=== PATIENT | female | born 1985 | race Two or more races ===

== ENCOUNTER 2016-09-08 14:27 | Emergency (ER) | payer OTHER ==
[~2016-09-08] VITALS: Ht 170.2 cm; Wt 108.9 kg
--- NOTE | 2016-09-08 14:50 | NUR ---
PT BIB SELF C/O EPIGASTRIC PAIN SINCE YESTERDAY, WORSENS WITH MOVEMENT OR EATING, WITH ASSOCIATED NAUSEA. NO VOMITINIG. ALSO C/O DIARRHEA X2 WEEKS. RESP EVEN UNLABORED. SKIN WARM NONDIAPHORETIC. AMBULATORY WITH STEADY GAIT. NAD NOTED. VSS. IN ER BED 11.
[2016-09-08] MEDS ORDERED: IV SET PRIMARY 1 EA INFUS.SET MC ONE (14:58)
[2016-09-08] MEDS ORDERED: IV NS 0.9% 0 ML ONE (14:58)
[2016-09-08] MEDS ORDERED: PANTOPRAZOLE 40 MG VIAL ONE (14:58)
[2016-09-08] MEDS ORDERED: PANTOPRAZOLE 40 MG VIAL IV ONE (15:00)
[2016-09-08] MEDS ORDERED: IV NS 0.9% 1,000 ML BAG IV ONE (15:00)
[2016-09-08 15:16] LABS: BASOPHILS # (AUTO) 0.1 /CMM (0.0-0.2); EOSINOPHILS # (AUTO) 0.1 /CMM (0.0-0.7); EOSINOPHILS % (AUTO) 1.4 % (0.0-6.0); HEMATOCRIT 42 % (33-45); HEMOGLOBIN 13.8 g/dL (11.5-14.8); LYMPHOCYTES # (AUTO) 1.2 /CMM (0.8-4.8); LYMPHOCYTES % (AUTO) 14.6 % (20.0-44.0); MEAN CORPUSCULAR HEMOGLOBIN 28 PG (26.0-33.0); MEAN CORPUSCULAR HGB CONC 33 g/dl (31.0-36.0); MEAN CORPUSCULAR VOLUME 84 fL (82-100); MONOCYTES # (AUTO) 0.4 /CMM (0.1-1.30); MONOCYTES % (AUTO) 5.1 % (2.0-12.0); NEUTROPHILS # (AUTO) 6.3 /CMM (1.8-8.9); NEUTROPHILS % (AUTO) 77.9 % (43.0-81.0); PLATELET COUNT (AUTO) 416 /CMM (150-450); RDW COEFFICIENT OF VARIATION 11.8 (11.5-15.0); RED BLOOD CELL COUNT(AUTO) 4.96 MIL/uL (4.0-5.2); WHITE BLOOD COUNT (AUTO) 8.1 K/uL (4.3-11.0)
[2016-09-08 15:25] LABS: CALCIUM, SERUM 8.3 mg/dL (8.5-10.1); CREATININE 0.7 mg/dL (0.6-1.3); POTASSIUM 3.8 mmol/L (3.5-5.1)
[2016-09-08 15:31] LABS: ALBUMIN 3.6 g/dL (3.4-5.0); BILIRUBIN,DIRECT 0.3 mg/dL (0.0-0.2); BILIRUBIN,TOTAL 1.5 mg/dL (0.2-1.0); TOTAL PROTEIN, SERUM 7.4 g/dL (6.4-8.2)
--- NOTE | 2016-09-08 15:32 | NUR ---
3 RNS UNABLE TO OBTAIN IV ACCESS. MD NOTIFIED. PER MD, CANCEL IV INSERTION. AWAITING NEW MED ORDERS.
--- NOTE | 2016-09-08 15:43 | NUR ---
WAITING ON HCG BEFORE CT SCAN.
[2016-09-08 15:46] LABS: APPEARANCE,URINE Clear (CLEAR); BILIRUBIN,URINE SMALL (NEGATIVE); BLOOD, URINE Negative Ery/uL (NEGATIVE); KETONES,URINE Negative (NEGATIVE); LEUKOCYTE ESTERASE ,URINE Negative (NEGATIVE); NITRITE, URINE Negative (NEGATIVE); PH,URINE 5.5 (5.0-8.0); PREGNANCY TEST URINE QUAL NEGATIVE (NEGATIVE); PROTEIN,URINE 30 mg/dl (NEGATIVE); UGLUCOSE Negative (NEGATIVE)
[2016-09-08 15:47] LABS: COLOR,URINE Dark Yellow (YELLOW)
[2016-09-08] MEDS ORDERED: LIDOCAINE VISCOUS 2% UD 15 ML UDC ONE (15:47)
[2016-09-08] MEDS ORDERED: MAG HYDROX/AL HYDROX/SIMETH 30 ML UDC ONE (15:47)
[2016-09-08 16:00] LABS: BACTERIA,URINE Moderate /HPF (None Seen); RBC,URINE 0-2 /HPF (0-2); SQUAMOUS EPITHELIAL CELL,UR Moderate /HPF (None Seen)
[2016-09-08] MEDS ORDERED: LIDOCAINE VISCOUS 2% UD 15 ML UDC MM ONE (16:00)
[2016-09-08] MEDS ORDERED: LIDOCAINE 2% JEL UROJET 10 ML MM ONE (16:00)
[2016-09-08] MEDS ORDERED: MAG HYDROX/AL HYDROX/SIMETH 30 ML UDC PO ONE (16:00)
[2016-09-08] MEDS ORDERED: PANTOPRAZOLE 40 MG TABLET.DR PO ONE ×2 (16:30→16:32)
[2016-09-08] MEDS ORDERED: HYDROCODONE/APAP 10/325MG 1 EA TABLET PO ONE (16:30)
[2016-09-08] MEDS ORDERED: HYDROCODONE/APAP 10/325MG 1 EA TABLET ONE (16:32)
--- NOTE | 2016-09-08 16:39 | NUR ---
Patient discharged to home in stable condition. Written and verbal after care instructions given. Patient verbalizes understanding of instruction. AMBULATORY WITH STEADY GAIT.
[2016-09-08 16:42] VITALS: BP 135/82
== END 2016-09-08 16:43 | disposition home or self-care (01) ==
LOC: ER 14:29
DX: K29.70 Gastritis, unspecified, without bleeding (principal); E66.01 Morbid (severe) obesity due to excess calories; Z90.49 Acquired absence of other specified parts of digestive tract
CPT/HCPCS: 36415; 71010-TC; 80048-TC; 80076-TC; 81000-TC; 83690-TC; 84703-TC; 85025-TC; 87086-TC; A4606; C9113; J7030; Z7610

== ENCOUNTER 2019-03-16 16:31 | Emergency (ER) | payer MEDICAID, OTHER ==
[~2019-03-16] VITALS: Ht 170.2 cm; Wt 136.1 kg
--- NOTE | 2019-03-16 16:35 | NUR ---
CAME IN FOR SPOTTING/CRAMPING X 1 WEEK, 13w , ALSO C/O ABDOMINAL CRAMPS PS 5/, TO ER BED 17, HOOKED TO MONITOR,, PROVIDED W WARM BLANKET, AWAITING MD JACSKON, KEPT SAFE AND COMFORTABLE
--- NOTE | 2019-03-16 16:48 | NUR ---
LEA GARSIA AT BEDSIDE
[2019-03-16 17:20] LABS: BASOPHILS % (AUTO) 0.9 % (0.0-2.0); EOSINOPHILS % (AUTO) 1.3 % (0.0-6.0); HEMATOCRIT 39 % (33-45); HEMOGLOBIN 12.7 g/dL (11.5-14.8); LYMPHOCYTES # (AUTO) 1.7 /CMM (0.8-4.8); LYMPHOCYTES % (AUTO) 29.5 % (20.0-44.0); MEAN CORPUSCULAR HGB CONC 33 g/dl (31.0-36.0); MEAN CORPUSCULAR VOLUME 81 fL (82-100); MONOCYTES # (AUTO) 0.3 /CMM (0.1-1.30); MONOCYTES % (AUTO) 5.9 % (2.0-12.0); NEUTROPHILS # (AUTO) 3.5 /CMM (1.8-8.9); NEUTROPHILS % (AUTO) 62.4 % (43.0-81.0); PLATELET COUNT (AUTO) 362 /CMM (150-450); RED BLOOD CELL COUNT(AUTO) 4.75 MIL/uL (4.0-5.2); WHITE BLOOD COUNT (AUTO) 5.7 K/uL (4.3-11.0)
[2019-03-16 17:27] LABS: CREATININE 0.6 mg/dL (0.6-1.3); POTASSIUM 3.8 mmol/L (3.5-5.1)
[2019-03-16 18:35] LABS: APPEARANCE,URINE Slightly Cloudy (CLEAR); BILIRUBIN,URINE Negative (NEGATIVE); BLOOD, URINE Trace-intact Ery/uL (NEGATIVE); COLOR,URINE Yellow (YELLOW); KETONES,URINE Negative (NEGATIVE); LEUKOCYTE ESTERASE ,URINE Trace (NEGATIVE); NITRITE, URINE Positive (NEGATIVE); PH,URINE 5.5 (5.0-8.0); PROTEIN,URINE Negative (NEGATIVE); UGLUCOSE Negative (NEGATIVE); UROBILINOGEN,URINE 0.2 EU/dL (0.2)
[2019-03-16 18:52] LABS: RBC,URINE 0-2 /HPF (0-2); WBC,URINE 21-50 /HPF (0-3)
[2019-03-16 18:53] LABS: BACTERIA,URINE 4+ /HPF (None Seen); SQUAMOUS EPITHELIAL CELL,UR Few /HPF (None Seen)
--- NOTE | 2019-03-16 19:28 | NUR ---
Patient discharged to home in stable condition. Written and verbal after care instructions given. Patient verbalizes understanding of instruction.
[2019-03-16 19:29] VITALS: BP 122/69
== END 2019-03-16 19:29 | disposition home or self-care (01) ==
LOC: ER 16:37
DX: O20.0 Threatened abortion (principal); N39.0 Urinary tract infection, site not specified; Z90.49 Acquired absence of other specified parts of digestive tract; Z98.890 Other specified postprocedural states; Z3A.14 14 weeks gestation of pregnancy
CPT/HCPCS: 36415; 76856-TC; 80048-TC; 81000-TC; 84702-TC; 85025-TC; 87086-TC; 87186-TC

== ENCOUNTER 2020-06-05 11:26 | Emergency (ER) | payer MEDICAID, OTHER ==
[~2020-06-05] VITALS: Ht 172.7 cm; Wt 159.2 kg
--- NOTE | 2020-06-05 11:40 | NUR ---
THE PATIENT BIBS FOR C/O MILD STABBING LIKE CHEST PAIN, L SIDE FACIAL NUMBNESS SINCE 8AM. THE PATIENT RATES PAIN 5/10. DENIES SOB. RESPIRATION REGULAR AND UNLABORED. PATIENT IS IN ROOM AIR. PATIENT IS PLACED ON A MONITOR. WARM BLANKET PROVIDED FOR COMFORT. WILL CONTINUE TO MONITOR.
[2020-06-05] MEDS ORDERED: VALA100026 PO (13:04)
[2020-06-05] MEDS ORDERED: PRED20TA PO (13:04)
[2020-06-05] MEDS ORDERED: IBUP-1955 PO (13:04)
[2020-06-05 13:21] VITALS: BP 138/76
--- NOTE | 2020-06-05 13:23 | NUR ---
Patient discharged to home in stable condition. Written and verbal after care instructions given. Patient verbalizes understanding of instruction.Patient left in stable condition. respiration even and unlabored. no sob noted. pt denies pain.
== END 2020-06-05 13:25 | disposition home or self-care (01) ==
LOC: ER 11:36
DX: G51.0 Bell's palsy (principal); R07.89 Other chest pain; Z90.49 Acquired absence of other specified parts of digestive tract; Z98.890 Other specified postprocedural states

== ENCOUNTER 2020-09-08 14:52 | Emergency (ER) | payer MEDICAID ==
[~2020-09-08] VITALS: Ht 170.2 cm; Wt 136.1 kg
[~2020-09-08 14:52] MED LIST: IBUP-1955 PO; PRED20TA PO; VALA100026 PO
[2020-09-08] MEDS ORDERED: LIDOCAINE VISCOUS 2% UD 15 ML UDC MM ONE (15:30)
[2020-09-08] MEDS ORDERED: IV NS 0.9% 1,000 ML BAG IV ONE (15:30)
[2020-09-08] MEDS ORDERED: MAG HYDROX/AL HYDROX/SIMETH 30 ML UDC PO ONE (15:30)
[2020-09-08] MEDS ORDERED: ONDANSETRON HCL/PF 4 MG/2 ML VIAL IV ONE (15:30)
[2020-09-08] MEDS ORDERED: MORPHINE SULFATE INJ 2 MG/ML DISP.SYRIN IV ONE (15:30)
--- NOTE | 2020-09-08 15:30 | NUR ---
Patient came in to the er c/o dizziness and blood in stool since this morning. On room air, breathing evenly and unlabored. Connected to the monitor and pulse ox. Kept comfortable, will continue to monitor accordingly.
[2020-09-08 15:35] LABS: MONOCYTES # (AUTO) 0.4 K/uL (0.1-1.30)
[2020-09-08] MEDS ORDERED: MAG HYDROX/AL HYDROX/SIMETH 30 ML UDC ONE (15:35)
[2020-09-08] MEDS ORDERED: LIDOCAINE VISCOUS 2% UD 15 ML UDC ONE (15:35)
[2020-09-08] MEDS ORDERED: ONDANSETRON HCL/PF 4 MG/2 ML VIAL ONE (15:35)
[2020-09-08] MEDS ORDERED: MORPHINE SULFATE INJ 4 MG/ML DISP.SYRIN ONE (15:35)
[2020-09-08 15:36] LABS: BILIRUBIN,URINE Negative (NEGATIVE); COLOR,URINE YELLOW (YELLOW); LEUKOCYTE ESTERASE ,URINE Negative (NEGATIVE); NITRITE, URINE Negative (NEGATIVE); PH,URINE 5.5 (5.0-8.0); PROTEIN,URINE Negative (NEGATIVE); UGLUCOSE Negative (NEGATIVE); UROBILINOGEN,URINE 0.2 EU/dL (0.2)
[2020-09-08 15:41] LABS: CALCIUM, SERUM 8.5 mg/dL (8.5-10.1); CREATININE 0.7 mg/dL (0.6-1.3); POTASSIUM 4.3 mmol/L (3.5-5.1)
[2020-09-08 15:44] LABS: BASOPHILS # (AUTO) 0.1 K/uL (0.0-0.2); BASOPHILS % (AUTO) 1.1 % (0.0-2.0); EOSINOPHILS % (AUTO) 3.1 % (0.0-6.0); HEMATOCRIT 36 % (33-45); HEMOGLOBIN 11.3 g/dL (11.5-14.8); LYMPHOCYTES # (AUTO) 1.8 K/uL (0.8-4.8); MEAN CORPUSCULAR HGB CONC 31 g/dl (31.0-36.0); MEAN CORPUSCULAR VOLUME 74 fL (82-100); MONOCYTES % (AUTO) 6.5 % (2.0-12.0); NEUTROPHILS # (AUTO) 3.4 K/uL (1.8-8.9); NEUTROPHILS % (AUTO) 58.3 % (43.0-81.0); PLATELET COUNT (AUTO) 473 K/uL (150-450); RED BLOOD CELL COUNT(AUTO) 4.87 MIL/uL (4.0-5.2); WHITE BLOOD COUNT (AUTO) 5.8 K/uL (4.3-11.0)
[2020-09-08 15:47] LABS: ALBUMIN 3.5 g/dL (3.4-5.0); BILIRUBIN,DIRECT 0.1 mg/dL (0.0-0.2); BILIRUBIN,TOTAL 0.6 mg/dL (0.2-1.0); TOTAL PROTEIN, SERUM 7.6 g/dL (6.4-8.2)
[2020-09-08 15:52] LABS: BACTERIA,URINE Moderate /HPF (None Seen); SQUAMOUS EPITHELIAL CELL,UR Moderate /HPF (None Seen)
[2020-09-08 16:01] LABS: OCCULT BLOOD STOOL NEGATIVE (NEGATIVE)
[2020-09-08] MEDS ORDERED: HYDR25SU11 RC (16:18)
[2020-09-08] MEDS ORDERED: ACET-2605 PO (16:18)
[2020-09-08 16:36] LABS: BAND % (MANUAL) 3 % (0.0-5.0); EOSINOPHILS % (MANUAL) 3 % (0-4); LYMPHOCYTES % (MANUAL) 18 % (16-48); MONOCYTES % (MANUAL) 8 % (0-11.0); NEUTROPHILS % (MANUAL) 68 (42-76)
[2020-09-08 16:48] VITALS: BP 127/77
--- NOTE | 2020-09-08 16:49 | NUR ---
Patient discharged to home in stable condition. Written and verbal after care instructions given. Patient verbalizes understanding of instruction.IV removed. Catheter intact and site benign. Pressure and 4x4 applied to site. No bleeding noted.
== END 2020-09-08 16:49 | disposition home or self-care (01) ==
LOC: ER 14:59
DX: K62.5 Hemorrhage of anus and rectum (principal); R42 Dizziness and giddiness; Z98.890 Other specified postprocedural states; Z90.49 Acquired absence of other specified parts of digestive tract; Z79.899 Other long term (current) drug therapy
CPT/HCPCS: 36415; 80048; 80076; 81001; 82272; 83690; 84703; 85007; 85025; 85730; 87086; 87186; 96361; 96374; 96375; 99284; J2270; J2405; J7030

== ENCOUNTER 2021-04-08 19:42 | Emergency (ER) | payer MEDICAID ==
[~2021-04-08] VITALS: Ht 170.2 cm; Wt 113.4 kg
[~2021-04-08 19:42] MED LIST changes: +ACET-2605 PO; +HYDR25SU11 RC
[2021-04-08] MEDS ORDERED: CIPR500T5 PO (21:56)
[2021-04-08 21:57] VITALS: BP 124/53
[2021-04-08] MEDS ORDERED: TDAP [DIPH/PERTUSSIS/TET] 0.5 ML VIAL IM ONE ×2 (22:00→22:03)
--- NOTE | 2021-04-08 22:15 | NUR ---
Patient discharged to home in stable condition. Written and verbal after care instructions given. Patient verbalizes understanding of instruction. Pt ambulatory with a steady gait
== END 2021-04-08 22:16 | disposition home or self-care (01) ==
LOC: ER 19:45
DX: S91.331A Puncture wound without foreign body, right foot, initial encounter (principal); G51.0 Bell's palsy; Z90.49 Acquired absence of other specified parts of digestive tract; Z79.52 Long term (current) use of systemic steroids; Z79.899 Other long term (current) drug therapy; Z79.1 Long term (current) use of non-steroidal anti-inflammatories (NSAID); W22.8XXA Striking against or struck by other objects, initial encounter; Y93.89 Activity, other specified; Y92.89 Other specified places as the place of occurrence of the external cause; Y99.8 Other external cause status
CPT/HCPCS: 90715

== ENCOUNTER 2022-01-16 17:25 | Emergency (ER) | payer MEDICAID ==
[~2022-01-16] VITALS: Ht 170.2 cm; Wt 154.2 kg
[~2022-01-16 17:25] MED LIST changes: +CIPR500T5 PO
--- NOTE | 2022-01-16 18:13 | NUR ---
TO ER BED 1. BIBS C/O COUGH X1WEEK. VITALS ARE WITHIN NORMAL LIMITS. AWAITING MD ORDERS.
[2022-01-16] MEDS ORDERED: IPRATROPIUM NEB FS 0.5 MG/2.5 ML AMPUL.NEB ONE (18:30)
[2022-01-16] MEDS ORDERED: ALBUTEROL FS 2.5 MG/3 ML VIAL.NEB ONE ×2 (18:30→20:15)
[2022-01-16] MEDS: ALBUTEROL FS 2.5 MG/3 ML VIAL.NEB NEB ONE (18:31)
[2022-01-16] MEDS: IPRATROPIUM NEB FS 0.5 MG/2.5 ML AMPUL.NEB NEB ONE (18:31)
[2022-01-16] MEDS ORDERED: methylPREDNISolone SOD SUCC 125 MG/2ML VIAL ONE (19:26)
[2022-01-16] MEDS: methylPREDNISolone SOD SUCC 125 MG/2ML VIAL IV ONE (19:35)
[2022-01-16 19:49] LABS: BASOPHILS % (AUTO) 0.4 % (0.0-2.0); HEMATOCRIT 33 % (33-45); HEMOGLOBIN 10.6 g/dL (11.5-14.8); LYMPHOCYTES # (AUTO) 2.1 K/uL (0.8-4.8); LYMPHOCYTES % (AUTO) 32.4 % (20.0-44.0); MEAN CORPUSCULAR HGB CONC 32 g/dl (31.0-36.0); MEAN CORPUSCULAR VOLUME 76 fL (82-100); MONOCYTES # (AUTO) 0.4 K/uL (0.1-1.30); MONOCYTES % (AUTO) 6.5 % (2.0-12.0); NEUTROPHILS # (AUTO) 3.5 K/uL (1.8-8.9); NEUTROPHILS % (AUTO) 54.7 % (43.0-81.0); PLATELET COUNT (AUTO) 465 K/uL (150-450); RED BLOOD CELL COUNT(AUTO) 4.34 MIL/uL (4.0-5.2); WHITE BLOOD COUNT (AUTO) 6.4 K/uL (4.3-11.0)
[2022-01-16 19:51] LABS: CALCIUM, SERUM 8.2 mg/dL (8.5-10.1); CREATININE 0.7 mg/dL (0.6-1.3); POTASSIUM 3.3 mmol/L (3.5-5.1)
--- NOTE | 2022-01-16 19:57 | NUR ---
CAME WITH IV CANNULA G20 ON LEFT AC. IV MEDS GIVEN
--- NOTE | 2022-01-16 20:09 | NUR ---
RT CALLED FOR BREATHING TX
[2022-01-16] MEDS: ALBUTEROL FS 2.5 MG/3 ML VIAL.NEB CONTNEB ONE (20:13)
--- NOTE | 2022-01-16 20:21 | NUR ---
EKG DONE AT BEDSIDE
[2022-01-16] MEDS ORDERED: EPINEPHRINE (1:1000) 1 MG/ML AMPUL ONE (20:38)
[2022-01-16] MEDS ORDERED: HYDROCODONE/APAP 5/325MG TABLET ONE (20:39)
[2022-01-16] MEDS ORDERED: Magnesium 1GM/D5W 100ML PREMIX 100 ML IV ONE (20:39)
[2022-01-16] MEDS: HYDROCODONE/APAP 5/325MG TABLET PO ONE (20:47)
[2022-01-16] MEDS: EPINEPHRINE (1:1000) 1 MG/ML AMPUL SUBCUT ONE (20:57)
[2022-01-16] MEDS: Magnesium 1GM/D5W 100ML PREMIX 200 ML IV ONE (20:57)
[2022-01-16] MEDS ORDERED: AZITHROMYCIN 250 MG TABLET PO ONE (21:30)
[2022-01-16] MEDS ORDERED: ALBU8.5H8 INH (21:35)
[2022-01-16] MEDS ORDERED: PRED20TA PO (21:35)
[2022-01-16] MEDS ORDERED: AZIT250T PO (21:35)
[2022-01-16] MEDS ORDERED: HYDR-3972 PO (21:35)
--- NOTE | 2022-01-16 21:56 | NUR ---
Patient discharged to home in stable condition. Written and verbal after care instructions given. Patient verbalizes understanding of instruction.IV removed. Catheter intact and site benign. Pressure and 4x4 applied to site. No bleeding noted. Pt ambulatory with a steady gait
[2022-01-16 23:31] VITALS: BP 123/74
== END 2022-01-16 22:30 | disposition home or self-care (01) ==
LOC: ER 17:27
DX: J45.909 Unspecified asthma, uncomplicated (principal); E66.01 Morbid (severe) obesity due to excess calories; Z68.43 Body mass index [BMI] 50.0-59.9, adult; Z20.822 Contact with and (suspected) exposure to COVID-19; Z90.49 Acquired absence of other specified parts of digestive tract; R94.31 Abnormal electrocardiogram [ECG] [EKG]
CPT/HCPCS: 36415; 71045-TC; 80048-TC; 85025-TC; 87040-TC; C9803; J0171; J2930; J3475